=== PATIENT | female | born 1950 | race Hispanic/Latino ===

== ENCOUNTER 2017-09-19 10:51 | Emergency (ER) | payer MEDICARE ==
[2017-09-19] MEDS ORDERED: PROVENTIL IH ONE (12:17)
[2017-09-19] MEDS ORDERED: ATROVENT IH ONE (12:17)
--- NOTE | 2017-09-19 12:38 | Emergency Department Report ---
ED General Adult HPI - General Chief complaint: Dyspnea/Respdistress Stated complaint: HEART PROBLEMS Time Seen by Provider: 09/19/17 12:10 Source: patient, family Mode of arrival: Ambulatory Limitations: No Limitations - History of Present Illness Initial comments: This is a 67-year-old female here with shortness of breath, tightness the test, congestion, feeling sick. She says she has a history of COPD and she is on albuterol and oxygen at home. She says she is supposed to be of some other medication but she ran out. Chest pain is 7 out of 10 and achy. Worse with coughing. She is a history of COPD, hypertension, congestive heart failure. Pain is better with rest and worse with coughing. No medication taken. Patient daughter report that she took hydrocodone prior to coming to the emergency room. MD Complaint: cough/sob,nausea -: Last night Location: chest Radiation: non-radiation Severity scale (0 -10): 7 Quality: aching, dull Improves with: rest Worsens with: other (coughing) Associated Symptoms: chest pain, cough, nausea/vomiting, shortness of breath, weakness. denies: confusion, diaphoresis, fever/chills, headaches, loss of appetite, malaise, rash, seizure, syncope Treatments Prior to Arrival: other (pain medication) - Related Data Home Medications Medication Instructions Recorded Confirmed Last Taken Carvedilol [Coreg] 25 mg PO BID 09/19/17 09/19/17 Unknown HYDROcodone/APAP 5-325 [[place] 1 each PO HS 09/19/17 09/19/17 Unknown 5/325] LORazepam [Ativan] 0.5 mg PO TID 09/19/17 09/19/17 Unknown Ranitidine HCl [Zantac 150 MG TAB] 150 mg PO BID 09/19/17 09/19/17 Unknown Simvastatin [Zocor] 20 mg PO QPM 09/19/17 09/19/17 Unknown Tizanidine HCl [tiZANidine] 2 mg PO Q8HR 09/19/17 09/19/17 Unknown Vortioxetine Hydrobromide 20 mg PO QDAY 09/19/17 09/19/17 Unknown [Trintellix] Previous Rx's Medication Instructions Recorded Last Taken Type Ibuprofen [Motrin] 600 mg PO Q8H PRN #12 tablet 09/19/17 Unknown Rx Ondansetron [Zofran TAB] 4 mg PO QAM PRN #12 tablet 09/19/17 Unknown Rx Prednisone [predniSONE 10 mg 10 mg PO .TAPER #1 tab.ds.pk 09/19/17 Unknown Rx (6-Day Pack, 21 Tabs)] Allergies Allergy/AdvReac Type Severity Reaction Status Date / Time duloxetine [From Cymbalta] Allergy Seizure Verified 09/19/17 11:04 paroxetine [From Paxil] Allergy Diarrhea Verified 09/19/17 11:04 ED Review of Systems ROS: Stated complaint: HEART PROBLEMS Other details as noted in HPI Constitutional: denies: chills, fever Eyes: denies: eye pain, eye discharge, vision change ENT: denies: ear pain, throat pain, congestion Respiratory: cough, shortness of breath, SOB with exertion, SOB at rest. denies : stridor, wheezing Cardiovascular: chest pain. denies: palpitations, edema, syncope, paroxysmal nocturnal dyspnea Endocrine: no symptoms reported Gastrointestinal: nausea. denies: abdominal pain, vomiting, diarrhea, constipation, hematemesis, hematochezia Genitourinary: denies: dysuria Musculoskeletal: denies: back pain, joint swelling, arthralgia, myalgia Skin: denies: rash, lesions Neurological: weakness. denies: headache, numbness, paresthesias, confusion, abnormal gait, vertigo ED Past Medical Hx - Past Medical History Previous Medical History?: Yes Hx Hypertension: Yes Hx Congestive Heart Failure: Yes Hx COPD: Yes - Surgical History Past Surgical History?: Yes Hx Cholecystectomy: Yes Additional Surgical History: tubal ligation, heart - Family History Family history: hypertension - Social History Smoking Status: Current Every Day Smoker Substance Use Type: Alcohol - Medications Home Medications: Home Medications Medication Instructions Recorded Confirmed Last Taken Type Carvedilol [Coreg] 25 mg PO BID 09/19/17 09/19/17 Unknown History HYDROcodone/APAP 5-325 [[place] 1 each PO HS 09/19/17 09/19/17 Unknown History 5/325] Ibuprofen [Motrin] 600 mg PO Q8H PRN #12 tablet 09/19/17 Unknown Rx LORazepam [Ativan] 0.5 mg PO TID 09/19/17 09/19/17 Unknown History Ondansetron [Zofran TAB] 4 mg PO QAM PRN #12 tablet 09/19/17 Unknown Rx Prednisone [predniSONE 10 mg 10 mg PO .TAPER #1 tab.ds.pk 09/19/17 Unknown Rx (6-Day Pack, 21 Tabs)] Ranitidine HCl [Zantac 150 MG TAB] 150 mg PO BID 09/19/17 09/19/17 Unknown History Simvastatin [Zocor] 20 mg PO QPM 09/19/17 09/19/17 Unknown History Tizanidine HCl [tiZANidine] 2 mg PO Q8HR 09/19/17 09/19/17 Unknown History Vortioxetine Hydrobromide 20 mg PO QDAY 09/19/17 09/19/17 Unknown History [Trintellix] ED Physical Exam - General Limitations: No Limitations General appearance: alert, in no apparent distress - Head Head exam: Present: atraumatic, normocephalic, normal inspection - Eye Eye exam: Present: normal appearance, PERRL, EOMI Pupils: Present: normal accommodation - ENT ENT exam: Present: normal exam, normal orophraynx, mucous membranes moist, TM's normal bilaterally, normal external ear exam - Neck Neck exam: Present: normal inspection, full ROM. Absent: tenderness, lymphadenopathy - Respiratory Respiratory exam: Present: wheezes, decreased breath sounds. Absent: normal lung sounds bilaterally, respiratory distress, rales, rhonchi, stridor, chest wall tenderness, accessory muscle use, prolonged expiratory - Cardiovascular Cardiovascular Exam: Present: regular rate, normal rhythm, normal heart sounds. Absent: systolic murmur, diastolic murmur - GI/Abdominal GI/Abdominal exam: Present: soft, normal bowel sounds. Absent: distended, tenderness, guarding, rebound, rigid - Extremities Exam Extremities exam: Present: normal inspection, full ROM, normal capillary refill , other (No cce. + 2 pulses in all extremities, no neurovascular compromise). Absent: tenderness, pedal edema, joint swelling, calf tenderness - Back Exam Back exam: Present: normal inspection, full ROM, other (ambulates without any difficulties). Absent: tenderness, CVA tenderness (R), CVA tenderness (L), muscle spasm, paraspinal tenderness, vertebral tenderness, rash noted - Neurological Exam Neurological exam: Present: alert, oriented X3, normal gait - Psychiatric Psychiatric exam: Present: normal affect, normal mood - Skin Skin exam: Present: warm, dry, intact, normal color. Absent: rash ED Course Vital Signs 09/19/17 09/19/17 09/19/17 11:04 12:20 13:40 Temperature 97.8 F Pulse Rate 86 Pulse Rate [ 85 95 H Anterior] Respiratory 22 Rate Respiratory 26 H 18 Rate [Anterior] Blood Pressure 154/95 O2 Sat by Pulse 94 Oximetry - Reevaluation(s) Reevaluation #1: 09/19/17 14:05 Patient received albuterol 10 mg and Atrovent 1 mg nebulizer treatment. She also received 125 mg IV. Nebulizer treatments still infusing. Reevaluation #2: 09/19/17 14:42 Upon evaluation, no audible wheezing. Patient still with diminished lung sounds throughout lung burger due to chronic emphysema. Patient given 1 mg of Ativan by mouth and 600 Motrin for anxiety and pain. I told her that she will need to talk to her primary care doctor regarding prescribing pain medication and anti-anxiety medication for her ED Medical Decision Making - Lab Data Result diagrams: 09/19/17 12:40 09/19/17 12:39 Lab Results 09/19/17 09/19/17 09/19/17 Range/Units 12:39 12:39 12:40 WBC 8.6 (4.5-11.0) K/mm3 RBC 4.55 (3.65-5.03) M/mm3 Hgb 14.3 (10.1-14.3) gm/dl Hct 41.7 (30.3-42.9) % MCV 92 (79-97) fl MCH 31 (28-32) pg MCHC 34 (30-34) % RDW 14.2 (13.2-15.2) % Plt Count 282 (140-440) K/mm3 Lymph % (Auto) 25.7 (13.4-35.0) % Mccormick % (Auto) 6.2 (0.0-7.3) % Eos % (Auto) 0.4 (0.0-4.3) % Baso % (Auto) 0.5 (0.0-1.8) % Lymph # 2.2 (1.2-5.4) K/mm3 Mccormick # 0.5 (0.0-0.8) K/mm3 Eos # 0.0 (0.0-0.4) K/mm3 Baso # 0.0 (0.0-0.1) K/mm3 Seg Neutrophils % 67.2 (40.0-70.0) % Seg Neutrophils # 5.8 (1.8-7.7) K/mm3 PT 12.0 L (12.2-14.9) Sec. INR 0.85 L (0.87-1.13) APTT 27.1 (24.2-36.6) Sec. D-Dimer < 135.00 (0-234) ng/mlDDU Sodium 137 (137-145) mmol/L Potassium 4.6 (3.6-5.0) mmol/L Chloride 97.1 L (98-107) mmol/L Carbon Dioxide 28 (22-30) mmol/L Anion Gap 17 mmol/L BUN 7 (7-17) mg/dL Creatinine 0.4 L (0.7-1.2) mg/dL Estimated GFR > 60 ml/min BUN/Creatinine Ratio 18 % Glucose 99 (65-100) mg/dL Calcium 9.5 (8.4-10.2) mg/dL Troponin T < 0.010 (0.00-0.029) ng/mL NT-Pro-B Natriuret Pep (0-900) pg/mL 09/19/17 Range/Units 12:40 WBC (4.5-11.0) K/mm3 RBC (3.65-5.03) M/mm3 Hgb (10.1-14.3) gm/dl Hct (30.3-42.9) % MCV (79-97) fl MCH (28-32) pg MCHC (30-34) % RDW (13.2-15.2) % Plt Count (140-440) K/mm3 Lymph % (Auto) (13.4-35.0) % Mccormick % (Auto) (0.0-7.3) % Eos % (Auto) (0.0-4.3) % Baso % (Auto) (0.0-1.8) % Lymph # (1.2-5.4) K/mm3 Mccormick # (0.0-0.8) K/mm3 Eos # (0.0-0.4) K/mm3 Baso # (0.0-0.1) K/mm3 Seg Neutrophils % (40.0-70.0) % Seg Neutrophils # (1.8-7.7) K/mm3 PT (12.2-14.9) Sec. INR (0.87-1.13) APTT (24.2-36.6) Sec. D-Dimer (0-234) ng/mlDDU Sodium (137-145) mmol/L Potassium (3.6-5.0) mmol/L Chloride (98-107) mmol/L Carbon Dioxide (22-30) mmol/L Anion Gap mmol/L BUN (7-17) mg/dL Creatinine (0.7-1.2) mg/dL Estimated GFR ml/min BUN/Creatinine Ratio % Glucose (65-100) mg/dL Calcium (8.4-10.2) mg/dL Troponin T (0.00-0.029) ng/mL NT-Pro-B Natriuret Pep 1054 H (0-900) pg/mL - EKG Data -: EKG Interpreted by Id EKG shows normal: sinus rhythm Rate: normal - EKG Data Interpretation: no acute changes, normal EKG (sinus rhythm at 60 bpm) - Radiology Data Radiology results: report reviewed Chest x-ray 2 views reveal hyperinflated consistent with emphysematous lung. No acute findings noted. This is dictated by radiologist and reviewed by myself. See below for details Findings Patient: BEN CHOE MR#: [id number] : 1950 Acct:[id number] Age/Sex: 67 / F ADM Date: 09/19/17 Loc: ED Attending Dr: Ordering Physician: GABRIELA POLANCO MD Date of Service: 09/19/17 Procedure(s): XR chest routine 2V Accession Number(s): [id number] cc: GABRIELA POLANCO MD Fluoro Time In Minutes: ROUTINE CHEST, TWO VIEWS: HISTORY: Dyspnea. No comparison. The lungs are hyperinflated consistent with underlying emphysematous changes. No evidence for infiltrate, pleural effusion or pneumothorax. The right hilum is slightly prominent. Adenopathy or mass is difficult to exclude. The left hilar region is within normal limits. Normal heart size and pulmonary vascularity. IMPRESSION: Emphysematous changes. Prominent right hilum. Recommend further evaluation with CT chest with contrast. Transcribed By: TTR Dictated By: LUKASZ SANTANA JR, MD Electronically Authenticated By: LUKASZ SANTANA JR, MD Signed Date/Time: 09/19/17 1234 DD/ 1233 TD/TT: 09/19/17 1234 - Medical Decision Making This is a 67-year-old patient here reported that she is having shortness of breath, nausea and cough. Patient with COPD, emphysema, congestive heart failure and hypertension. Patient is a long-term O2 at home for COPD. Was seen and examined by myself. Physical exam is normal except she had diminished air entry to level feels with wheezing and and mild increased work of breathing. Chest x-ray showed no acute cardiopulmonary findings except that she has emphysema. This was dictated by radiologist and report reviewed by myself. Radiologist is also recommending CT scan of the chest due to prominent right hilum, which could obscure mass or adenopathy. CBC, CMP, BNP slightly elevated and troponin are all within normal limits. D-dimer is normal. PT has no edema or swelling around her abdomen. No signs of fluid overload. I discussed the patient and family her x-ray and lab results and she voiced understanding. She was given antianxiety and pain medication in the emergency room for anxiety and complain of chronic pain. Patient stable. Her lung sounds better after nebulizer treatment and said she felt better. Patient does not have any primary care physician as she just moved from [place] and says she does not have any transport therefore we will recommend her to Dr. Bear for primary care visit. COPD [id number] with no acute finding except for prominent right hilum requiring outpatient CT scan of the chest with contrast. Patient given albuterol 10 mg, Atrovent 1 mg nebulizer and Solu-Medrol 125 mg IV and emergency room. Patient will be referred to Dr. Bear for primary care. She will be placed on steroids and she has albuterol nebulizer machine at home and I discussed with her that she needs to continue her nebulizer every 6 hours 2 days and then as needed in use her home oxygen as needed. I will also refer her to supervisor hardboard Atypical chest pain-troponin stable, EKG stable, BNP mildly elevated but no signs of fluid overload. Nausea-patient will be placed on Zofran for nausea Anxiety-Ativan 1 mg by mouth given and better Chronic pain-before meals given Motrin 600 mg and her pain is better. Will be discharged home on Motrin Patient stable. Vital signs are stable she is afebrile. She feels better after nebulizer treatment and steroids. Patient says she is feeling a lot better. Discharged home in Zofran, Motrin and prednisone Dosepak. Patient to follow-up with Dr. Bear and pulmonary doctor in 1 day. I told her and her family to call tomorrow to schedule an appointment. They voiced understanding. I also discussed with them if her condition worsens to return to the emergency room TAYLA. - Differential Diagnosis PNA, bronchitis, ACS, COPD exacerbation, URI with cough and congestion Critical care attestation.: If time is entered above; I have spent that time in minutes in the direct care of this critically ill patient, excluding procedure time. ED Disposition Clinical Impression: COPD exacerbation, Cough in adult, Shortness of breath, Atypical chest pain, Anxiety, Musculoskeletal pain Disposition: TO HOME OR SELFCARE Is pt being admited?: No Does the pt Need Aspirin: No Condition: Stable Instructions: Chronic Obstructive Pulmonary Disease (ED), Chest Pain (ED), Anxiety (ED), Musculoskeletal Pain (ED) Additional Instructions: Follow up with primary care physician, supervisor hardboard and brief writer as instructed. He can also follow up at [facility] for primary care if you do not get in with Dr. Bear immediately. Take Zofran for nausea Take Motrin for musculoskeletal pain If your condition worsens, please return to the emergency room TAYLA Take albuterol nebulizer every 6 hours 2 days and then as needed. He needs a longer acting in inhaler that includes steroids so you will need to discuss this with you supervisor hardboard or your primary care physician. Prescriptions: Ibuprofen [Motrin] 600 mg PO Q8H PRN #12 tablet PRN Reason: Pain Ondansetron [Zofran TAB] 4 mg PO QAM PRN #12 tablet PRN Reason: Nausea Prednisone [predniSONE 10 mg (6-Day Pack, 21 Tabs)] 10 mg PO .TAPER #1 tab.ds.pk Referrals: RYLAN BEAR MD [Staff Physician] - 09/20/17 [facility] [Outside] - 09/20/17 ANDRZEJ AOYN MD [Staff Physician] - 09/20/17 LAVELL SAUNDERS MD [Staff Physician] - 09/20/17 Forms: Accompanied Note
--- NOTE | 2017-09-19 12:46 | XRay Report ---
ROUTINE CHEST, TWO VIEWS: HISTORY: Dyspnea. No comparison. The lungs are hyperinflated consistent with underlying emphysematous changes. No evidence for infiltrate, pleural effusion or pneumothorax. The right hilum is slightly prominent. Adenopathy or mass is difficult to exclude. The left hilar region is within normal limits. Normal heart size and pulmonary vascularity. IMPRESSION: Emphysematous changes. Prominent right hilum. Recommend further evaluation with CT chest with contrast.
[2017-09-19 12:57] LABS: Basophils % (Auto) 0.5 % (0.0-1.8); Eosinophils % (Auto) 0.4 % (0.0-4.3); Hematocrit 41.7 % (30.3-42.9); Hemoglobin 14.3 gm/dl (10.1-14.3); Lymphocytes # (Auto) 2.2 K/mm3 (1.2-5.4); Lymphocytes % (Auto) 25.7 % (13.4-35.0); Mean Corpuscular HGB Conc 34 % (30-34); Mean Corpuscular Hemoglobin 31 pg (28-32); Mean Corpuscular Volume 92 fl (79-97); Monocytes # (Auto) 0.5 K/mm3 (0.0-0.8); Monocytes % (Auto) 6.2 % (0.0-7.3); Platelet Count 282 K/mm3 (140-440); Red Blood Count 4.55 M/mm3 (3.65-5.03); Red Cell Distribution Width 14.2 % (13.2-15.2)
[2017-09-19 13:08] LABS: INR 0.85 (0.87-1.13)
[2017-09-19 13:09] LABS: Partial Thromboplastin Time 27.1 Sec. (24.2-36.6)
[2017-09-19 13:12] LABS: BUN/Creatinine Ratio 18; Blood Urea Nitrogen 7 mg/dL (7-17); Calcium 9.5 mg/dL (8.4-10.2); Hemolysis Index 23
[2017-09-19] MEDS ORDERED: ATIVAN PO ONE (14:50)
[2017-09-19] MEDS ORDERED: MOTRIN PO ONE (14:50)
[2017-09-19 15:18] VITALS: BP 169/107
== END 2017-09-19 15:19 | disposition home or self-care (01) ==
LOC: ED 10:51
DX: J44.1 Chronic obstructive pulmonary disease with (acute) exacerbation (principal); F41.9 Anxiety disorder, unspecified; I11.0 Hypertensive heart disease with heart failure; I50.9 Heart failure, unspecified; F17.200 Nicotine dependence, unspecified, uncomplicated; Z90.49 Acquired absence of other specified parts of digestive tract; Z88.8 Allergy status to other drugs, medicaments and biological substances
CPT/HCPCS: 36415; 71046; 80048; 83880; 84484; 85025; 85379; 85610; 85730; 93005; 93010; 94644; 96374; 99284; J2930